=== PATIENT | female | born 1950 | race Caucasian/White ===

== ENCOUNTER → 2020-08-14 | Outpatient (CLI) | payer MEDICARE, OTHER | LOC: CT 11:04 | PROVIDERS: ATTEND Internal Medicine | DX: R07.89 Other chest pain (principal); R91.1 Solitary pulmonary nodule; Z72.0 Tobacco use | CPT/HCPCS: 71250 ==

== ENCOUNTER → 2023-12-06 | Outpatient (REF) | payer MEDICARE, OTHER ==
[~2023-12-06] MED LIST: IOPAMIDOL 370 MG/ML 100 ML INFUS..BTL INJ ONE
[2023-12-06 14:38] LABS: CREATININE, SERUM 0.89 mg/dL (0.57-1.11)
== END ==
LOC: CT 13:46
PROVIDERS: ATTEND Internal Medicine Pulmonary Disease
DX: R91.1 Solitary pulmonary nodule (principal)
CPT/HCPCS: 36415; 71260; 82565; 84520; Q9967

== ENCOUNTER → 2024-11-28 | Outpatient (REF) | payer MEDICARE, OTHER | LOC: MAMMO 12:09 | PROVIDERS: ATTEND Internal Medicine | DX: Z12.31 Encounter for screening mammogram for malignant neoplasm of breast (principal) | CPT/HCPCS: 77067 ==